=== PATIENT | female | born 1955 | race Caucasian/White ===

== ENCOUNTER 2017-06-16 13:24 | Outpatient (CLI) | payer OTHER ==
--- NOTE | 2017-06-17 17:15 | Mammography Report ---
DIGITAL SCREENING MAMMOGRAM: 06/16/2017 CLINICAL INDICATION: A 61-year-old, for screening. COMPARISON: 02/2016, 01/2015, 12/2013, 12/2012, 12/2011, 10/2010, 09/2009. TECHNIQUE: Routine CC and MLO projections were obtained of the breasts. FINDINGS: The breasts again demonstrate heterogeneously dense fibroglandular parenchyma bilaterally. Coarse and punctate, typically benign calcifications are present. No suspicious masses, clustered microcalcifications or regions of architectural distortion are identified. IMPRESSION: BENIGN FINDINGS. RECOMMENDATION: ROUTINE ANNUAL SCREENING UNLESS OTHERWISE CLINICALLY INDICATED. BIRADS CATEGORY 2-BENIGN FINDINGS. STANDARD QUALIFYING STATEMENTS: 1. This examination was reviewed with the aid of Computer-Aided Detection (CAD). 2. A negative or benign imaging report should not delay biopsy if clinically suspicious findings are present. Consider surgical consultation if warranted. More than 5% of cancers are not identified by imaging. 3. Dense breasts may obscure an underlying neoplasm. TD: 06/17/2017 17:05
== END 2017-06-16 13:25 | disposition home or self-care (01) ==
LOC: DI 13:24
PROVIDERS: ATTEND Family Medicine
DX: Z12.31 Encounter for screening mammogram for malignant neoplasm of breast (principal)
CPT/HCPCS: 77067

== ENCOUNTER 2018-07-15 15:17 | Outpatient (CLI) | payer OTHER ==
--- NOTE | 2018-07-16 08:42 | Mammography Report ---
Reason: SCREENING MAMMO Procedure Date: 07/15/2018 Accession Number: [id number] / [id number] Procedure: [facility] - Screening Mammo w/Shraavn CPT Code: FULL RESULT: EXAM: Screening Mammo w/Shravan DATE: 07/15/2018 4:00 PM CLINICAL HISTORY: Screening encounter. Family history of breast cancer in an aunt at the age of 80, grandmother at the age of 85 and a cousin at the age of 55. TECHNIQUE: Bilateral CC and MLO views were obtained. COMPARISON: 06/16/2017 through 12/12/2013. FINDINGS: The breasts demonstrate scattered fibroglandular densities bilaterally. There are coarse typically benign calcifications. No suspicious masses, clustered microcalcifications, or regions of architectural distortion are identified. IMPRESSION: Benign findings RECOMMENDATION: Routine annual screening unless otherwise clinically indicated. BIRADS CATEGORY 2: Benign findings STANDARD QUALIFYING STATEMENTS: 1. This examination was not reviewed with the aid of Computer-Aided Detection (CAD). 2. A negative or benign imaging report should not delay biopsy if clinically suspicious findings are present. Consider surgical consultation if warrented. More than 5% of cancers are not identified by imaging. 3. Dense breasts may obscure an underlying neoplasm. 4. This examination was reviewed with the aid of 3D breast imaging (tomosynthesis).
== END 2018-07-15 15:18 | disposition home or self-care (01) ==
LOC: DI 15:17
DX: Z12.31 Encounter for screening mammogram for malignant neoplasm of breast (principal); Z80.3 Family history of malignant neoplasm of breast
CPT/HCPCS: 77063; 77067

== ENCOUNTER 2019-11-24 11:41 | Outpatient (CLI) | payer OTHER ==
--- NOTE | 2019-11-30 08:33 | Mammography Report ---
Reason: ROUTINE MAMMO Procedure Date: 11/24/2019 Accession Number: [id number] / [id number] Procedure: [facility] - Screening Mammo w/Shravan CPT Code: Final Report FULL RESULT: BILATERAL DIGITAL SCREENING MAMMOGRAM 3D/2D: 11/24/2019 CLINICAL: Routine screening. Comparison is made to exams dated: 07/15/2018 mammogram, 06/16/2017 mammogram, 03/10/2016 mammogram, and 01/24/2015 mammogram - [facility]. The tissue of both breasts is heterogeneously dense. This may lower the sensitivity of mammography. No significant masses, calcifications, or other findings are seen in either breast. There has been no significant interval change. IMPRESSION: NEGATIVE There is no mammographic evidence of malignancy. A 1 year screening mammogram is recommended. This exam was interpreted at Station ID: [id number]. NOTE: For mammograms, a report in lay terms will be sent to the patient. Approximately 15% of breast malignancies will not be visualized mammographically. In the management of a palpable breast mass, a negative mammogram must not discourage biopsy of a clinically suspicious lesion. Electronically Signed By: Gerardo jefferson/carol:11/29/2019 13:24:56 ACR BI-RADS Category 1: Negative 3341F C -Heterogeneously dense 1 Mammogram [id number] 1 year screening B
== END 2019-11-24 11:42 | disposition home or self-care (01) ==
LOC: DI.N 11:41
DX: Z12.31 Encounter for screening mammogram for malignant neoplasm of breast (principal)
CPT/HCPCS: 77063; 77067

== ENCOUNTER 2020-03-05 14:30 | Outpatient (CLI) | payer OTHER | END 2020-03-05 14:31 | disposition home or self-care (01) | LOC: COV 14:30 | PROVIDERS: ATTEND Family Medicine | DX: J02.9 Acute pharyngitis, unspecified (principal); R09.81 Nasal congestion; Z20.828 Contact with and (suspected) exposure to other viral communicable diseases ==

== ENCOUNTER 2021-01-15 12:37 | Outpatient (CLI) | payer OTHER ==
--- NOTE | 2021-01-16 12:55 | Mammography Report ---
BILATERAL DIGITAL SCREENING MAMMOGRAM 3D/2D: 01/15/2021 CLINICAL: Routine screening. Comparison is made to exams dated: 11/24/2019 mammogram, 07/15/2018 mammogram, 06/16/2017 mammogram, 02/10 mammogram, 01/24/2015 mammogram, and 12/12/2013 mammogram - [facility]. The ti ssue of both breasts is heterogeneously dense. This may lower the sensitivity of mammography. No significant masses, calcifications, or other findings are seen in either breast. There has been no significant interval change. IMPRESSION: NEGATIVE There is no mammographic evidence of malignancy. A 1 year screening mammogram is recommended. This exam was interpreted at Station ID: [id number]. NOTE: For mammograms, a report in lay terms will be sent to the patient. Approximately 15% of breast malignancies will not be visualized mammographically. In the management of a palpable breast mass, a negative mammogram must not discourage biopsy of a clinically suspicious lesion. Electronically Signed By: Chico Chambers M.D. [facility] [place]:01/15/2021 13:22:46 ACR BI-RADS Category 1: Negative 3341F PARENCHYMAL PATTERN: (D) - The breast(s) demonstrate(s) heterogeneously dense fibroglandular amando parra. BI-RADS CATEGORY: (1) - 1 RECOMMENDATION: (ANNUAL) - Recommend routine annual screening mammography. [id number] 1 year screening LATERALITY: (B)
== END 2021-01-15 12:38 | disposition home or self-care (01) ==
LOC: DI.N 12:37
DX: Z12.31 Encounter for screening mammogram for malignant neoplasm of breast (principal)

== ENCOUNTER 2023-10-26 10:52 | Outpatient (CLI) | payer MEDICARE, OTHER ==
--- NOTE | 2023-10-27 12:19 | Mammography Report ---
BILATERAL DIGITAL SCREENING MAMMOGRAM 3D/2D: 10/26/2023 CLINICAL: Routine screening. Comparison is made to exams dated: 01/15/2021 mammogram, 11/24/2019 mammogram, 07/15/2018 mammogram, 2017 mammogram, 03/10/2016 mammogram, and 01/24/2015 mammogram - [facility]. Both breasts are heterogeneously dense, which may obscure small masses (category c / 51-75% glandular tissue). No significant masses, calcifications, or other findings are seen in either breast. There has been no significant interval change. IMPRESSION: NEGATIVE There is no mammographic evidence of malignancy. A 1 year screening mammogram is recommended. Based on the Tyrer Cuzick model (a risk assessment model) the patient's lifetime risk is 18.3% and he r 10 year risk is 9.9%. According to the ACR, ACS, and NCCN guidelines, an annual breast MRI exam malka ng with mammogram is recommended if the patient's lifetime risk is 20% or greater. This exam was interpreted at Station ID: [id number]. NOTE: For mammograms, a report in lay terms will be sent to the patient. Approximately 15% of breast malignancies will not be visualized mammographically. In the management of a palpable breast mass, a negative mammogram must not discourage biopsy of a clinically suspicious lesion. Electronically Signed By: Mckenzie Presley M.D., Ph.D. /carol:10/26/2023 16:18:41 letter sent: No_Letter ACR BI-RADS Category 1: Negative 3341F PARENCHYMAL PATTERN: (D) - The breast(s) demonstrate(s) heterogeneously dense fibroglandular amando parra. BI-RADS CATEGORY: (1) - 1 RECOMMENDATION: (ANNUAL) - Recommend routine annual screening mammography. [id number] 1 year screening LATERALITY: (B)
== END 2023-10-26 10:53 | disposition home or self-care (01) ==
LOC: DI.N 10:52
DX: Z12.31 Encounter for screening mammogram for malignant neoplasm of breast (principal); R92.333 Mammographic heterogeneous density, bilateral breasts

== ENCOUNTER 2024-01-01 07:52 | Outpatient (CLI) | payer MEDICARE, OTHER ==
[2024-01-01 12:09] LABS: BASOPHILS # (AUTO) 0.1 10^3/uL (0.0-0.1); BASOPHILS % (AUTO) 0.9 %; EOSINOPHILS # (AUTO) 0.1 10^3/uL (0.0-0.7); EOSINOPHILS % (AUTO) 1.2 %; HCT - HEMATOCRIT 47.8 % (37.0-47.0); LYMPHOCYTES # (AUTO) 2.5 10^3/uL (1.5-3.5); LYMPHOCYTES % (AUTO) 37.3 %; MEAN CORPUSCULAR HEMOGLOBIN 29.4 pg (27.0-31.0); MEAN CORPUSCULAR HGB CONC 31.4 g/dL (32.0-36.0); MEAN CORPUSCULAR VOLUME 93.7 fL (81.0-99.0); MEAN PLATELET VOLUME 10.7 fL (7.9-10.8); MONOCYTES # (AUTO) 0.5 10^3/uL (0.0-1.0); MONOCYTES % (AUTO) 7.2 %; NEUTROPHILS # (AUTO) 3.6 10^3/uL (1.5-6.6); NEUTROPHILS % (AUTO) 53.3 %; PLT - PLATELET COUNT 245 10^3/uL (130-450); RED CELL DISTRIBUTION WIDTH 12.1 % (12.0-15.0); WHITE BLOOD COUNT 6.8 x10^3/uL (4.8-10.8)
[2024-01-01 12:11] LABS: BILIRUBIN,URINE MODERATE (NEGATIVE); GLUCOSE, URINE (UA) NEGATIVE (NEGATIVE); KETONES,URINE (UA) NEGATIVE (NEGATIVE); LEUKOCYTE ESTERASE, URINE SMALL (NEGATIVE); NITRITE,URINE NEGATIVE (NEGATIVE); OCCULT BLOOD,URINE NEGATIVE (NEGATIVE); PH,URINE 7.5 PH (5.0-7.5); PROTEIN,URINE NEGATIVE (NEGATIVE); UROBILINOGEN,URINE 0.2 (NORMAL) E.U./dL (NORMAL)
[2024-01-01 12:15] LABS: CLARITY,URINE SCL (CLEAR)
[2024-01-01 12:24] LABS: BACTERIA,URINE Rare /HPF (None Seen); RBC,URINE None Seen /HPF (0-5); SQUAMOUS EPITHELIAL CELL,UR MOD Squamous (<= Few)
[2024-01-01 12:38] LABS: ALBUMIN 4.3 g/dL (3.2-5.5); ALBUMIN/GLOBULIN RATIO 1.6 (1.0-2.2); BILIRUBIN,TOTAL 0.6 mg/dL (0.2-1.0); CALCIUM 9.8 mg/dL (8.5-10.3); CREATININE 0.9 mg/dL (0.6-1.3); POTASSIUM 3.9 mmol/L (3.5-4.5)
[2024-01-02 03:11] LABS: HBsAG SCREEN Negative (Negative); HCV AB Non Reactive (Non Reactive); HEPATITIS B CORE IGM AB Negative (Negative)
== END 2024-01-01 07:53 | disposition home or self-care (01) ==
LOC: LAB.N 07:52
PROVIDERS: ATTEND Family Medicine
DX: I10 Essential (primary) hypertension (principal); M79.7 Fibromyalgia; M79.604 Pain in right leg; M79.605 Pain in left leg; R82.2 Biliuria; R53.83 Other fatigue
CPT/HCPCS: 36415; 80053; 80074; 81001; 81003; 85025; 87086